=== PATIENT | female | born 1980 | race Caucasian/White ===

== ENCOUNTER → 2023-08-07 | Outpatient (CLI) | payer MEDICAID | END | disposition home or self-care (01) | LOC: RAD 11:02 | PROVIDERS: ATTEND Student in an Organized Health Care Education/Training Program | DX: Z30.09 Encounter for other general counseling and advice on contraception (principal); Z97.5 Presence of (intrauterine) contraceptive device | CPT/HCPCS: 76830; 93976 ==

== ENCOUNTER 2024-12-10 11:59 | Outpatient (CLI) | payer MEDICAID ==
--- NOTE | 2024-12-10 13:17 | RADIOLOGY REPORT ---
EXAM: DI HAND, COMPLETE (3VW MIN) CLINICAL INDICATION: RIGHT HAND PAIN TECHNIQUE: DI HAND, COMPLETE (3VW MIN) Comparison: None FINDINGS/IMPRESSION: There is no evidence of acute fracture or dislocation. Moderate 1st cmc osteoarthritis. The alignment is anatomical. There is no radiopaque foreign body.
== END 2024-12-10 23:59 | disposition home or self-care (01) ==
LOC: RAD 11:59
PROVIDERS: ATTEND Student in an Organized Health Care Education/Training Program
DX: M18.11 Unilateral primary osteoarthritis of first carpometacarpal joint, right hand (principal); M79.671 Pain in right foot
CPT/HCPCS: 73130

== ENCOUNTER 2025-04-08 08:58 | Emergency (ER) | payer MEDICAID ==
[~2025-04-08] VITALS: Ht 167.6 cm; Wt 88.9 kg
[2025-04-08 09:05] VITALS: BP 189/116; PULSE 95; RESP 18; TEMP 98.8; O2SAT 100
--- NOTE | 2025-04-08 09:14 | ELECTROCARDIOGRAPH REPORT ---
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 RAMIRO Bowles Measurements Intervals [place] Rate: 91 P: 61 PA: 148 QRS: 47 QRSD: 84 T: 49 QT: 352 QTc: 434 Interpretive Statements Sinus rhythm Low voltage, precordial leads Baseline wander in lead(s) III,aVF Electronically Signed On 04-09-2025 18:10:[address] RAMIRO Bowles Please click the below link to view image of tracing.
--- NOTE | 2025-04-08 09:28 | Physician Documentation ---
History of Present Illness ~ Chief Complaint: Hypertension Stated Complaint: HIGH BLOOD PRESSURE Time Seen by MD: 09:22 Mode of Arrival: POV HPI Sent by urgent care for asymptomatic hypertension. Patient denies chest pain, headache, fever, N/V/D. Has appointment with a new PCP tomorrow. Medication Reconciliation Allergies: Coded Allergies: No Known Allergies (Unverified , 04/08/25) Review of Systems All Other Systems at this time: Reviewed and Negative Physical Exam Vital Signs: RN Vital Signs have been reviewed: Yes, Temperature: 98.8, Source: Temporal, Heart Rate: 95, Respiratory Rate: 18, BP: 189/116, Pulse Oximetry: 100, Weight: 88.900 Oxygen Flow Rate: 0 Physical Exam Gen: no distress HEENT: PERRL, EOMI Pulm: no distress Cardiac: deferred Abdomen: deferred MSK: no deformity Skin: w/d/i Neuro: nonfocal Psych: unremarkable Progress Results/Orders Results/Orders Orders - RADHA STOKES MD Clonidine Tablet (Catapres Tablet) (04/08/25 09:25) Completed Orders - RADHA STOKES MD Stat Ekg (04/08/25 09:08) Vital Signs 04/08/25 04/08/25 09:05 09:22 Temp 98.8 Pulse 95 Resp 18 B/P (MAP) 189/116 Pulse Ox 100 O2 Flow Rate 0 Medical Decision Making Additional information obtaine: N/A Findings 44 year old female with asymptomatic hypertension which is new for her. Explained that there is little danger in the short term and that she should seek PCP follow up for further workup. No red flag signs/symptoms, provided clonidine. No indication for laboratory work at this time. Return precautions discussed. Differential Dx:Considerations: Include HTN, essential, Include HTN, accelerated, Include HTN, malignant, Include HTN, encephalopathy, Include medication withdrawal, Include renal failure Departure Disposition: HOME / SELF CARE / HOMELESS Impression: Primary Impression: Benign hypertension Condition: Stable Discharge Instructions: Hypertension, Adult Referrals: NO PRIMARY CARE PROVIDER (PCP) Education Educated: Patient Educated regarding: diagnosis, treatment, prognosis, need for follow up Signature Scribe Signature: . Attestation: . RADHA STOKES MD Apr 08, 2025 09:28
== END 2025-04-08 09:40 | disposition home or self-care (01) ==
LOC: ER 08:59
DX: I10 Essential (primary) hypertension (principal)
CPT/HCPCS: 93005; 99283